=== PATIENT | male | born 1975 | race Caucasian/White ===

== ENCOUNTER 2019-02-15 18:50 | Emergency (ER) | payer OTHER ==
[2019-02-15 18:56] VITALS: BP 127/85
[2019-02-15] MEDS ORDERED: AMOXICILLIN TR/POT CLAVULANATE 500-125 MG TAB PO ONE (19:48)
[2019-02-15] MEDS ORDERED: DIPH/PERTUSS(ACELL)/TETANUS VAC/PF 0.5 ML SYR (>=10YO) IM ONE (19:48)
[2019-02-15] MEDS ORDERED: OXYCODONE-ACETAMINOPHEN 5-325 MG TABLET PO ONE (19:48)
[2019-02-15] MEDS ORDERED: AMOXICILLIN TRIHYD 250 MG CAPSULE PO ONE (19:48)
[2019-02-15] MEDS ORDERED: LIDOCAINE 1% INJ-PF (10 MG/ML) 30 ML SDV INJ ONE (19:48)
--- NOTE | 2019-02-15 19:51 | ER Document Report ---
ED Medical Screen (RME) - General Chief Complaint: Dog Bite Stated Complaint: DOG BITE Time Seen by Provider: 02/15/19 19:37 Mode of Arrival: Ambulatory Information source: Patient Notes: Patient reports dog bite to the right upper lip area. Patient then avulsion of the tissue. Patient reports that animal's immunizations are up-to-date. I have greeted and performed a rapid initial assessment of this patient. A comprehensive ED assessment and evaluation of the patient, analysis of test results and completion of the medical decision making process will be conducted by additional ED providers. TRAVEL OUTSIDE OF THE [place] IN LAST 30 DAYS: No - Related Data Allergies/Adverse Reactions: No Known Allergies Allergy (Verified 03/21/17 09:53) Past Medical History Renal/ Medical History: Denies: Hx Peritoneal Dialysis - Immunizations Hx Diphtheria, Pertussis, Tetanus Vaccination: No History of Influenza Vaccine for 02/2017 - 07/2017 Season: No Physical Exam - Vital signs Vitals: Temp Pulse BP Pulse Ox 97.8 F 59 L 127/85 H 100 02/15/19 18:54 02/15/19 18:54 02/15/19 18:54 02/15/19 18:54 - General Notes: Avulsion injury to right upper lip, small flap of tissue to lip area Course - Re-evaluation Re-evalutation: 02/15/19 19:50 Dr. Berta Norman to bedside, recommends having patient to room and she will perform wound repair - Vital Signs Vital signs: Temp Pulse Resp BP Pulse Ox 97.8 F 59 L 127/85 H 100 02/15/19 18:54 02/15/19 18:54 02/15/19 18:54 02/15/19 18:54
--- NOTE | 2019-02-15 20:01 | ER Document Report ---
ED Animal Bite - General Chief Complaint: Dog Bite Stated Complaint: DOG BITE Time Seen by Provider: 02/15/19 19:37 Primary Care Provider: ANDREW SILVA MD [ACTIVE STAFF] - Follow up tomorrow Mode of Arrival: Ambulatory TRAVEL OUTSIDE OF THE [place] IN LAST 30 DAYS: No - HPI Notes: Patient is a 43-year-old male that presents to the emergency department for chief complaint of dog bite. Patient states that just prior to coming the ER he was leaning forward putting his friend's dog when it lunged forward and bit him in the lip. He reports pain in the lip but denies any injury to his teeth. He believes the dog is vaccinated. He is not sure when his last tetanus vaccine was. Past Medical History: Negative Past Surgical History: Reviewed in chart Social History: Denies drugs alcohol and tobacco Family History: Reviewed and noncontributory for presenting illness Allergies: Reviewed, see documented allergy list. REVIEW OF SYSTEMS: CONSTITUTIONAL : No fever No chills No diaphoresis No recent illness EENT: No vision changes No congestion No sore throat CARDIOVASCULAR: No chest pain No palpitations RESPIRATORY: No shortness of breath No cough No difficulty breathing GASTROINTESTINAL: No abdominal pain No nausea No vomiting No diarrhea GENITOURINARY: No dysuria No hematuria No difficulty urinating MUSCULOSKELETAL: No back pain No leg pain No arm pain SKIN: No rashes Facial laceration LYMPHATIC: No swollen, enlarged glands. NEUROLOGICAL: No lightheadedness No headache No weakness No paresthesias PSYCHIATRIC: No anxiety No depression PHYSICAL EXAMINATION: Vital signs reviewed, nursing noted reviewed. GENERAL: Well-appearing, well-nourished and in no acute distress. HEAD: Atraumatic, normocephalic. EYES: Eyes appear normal, extraocular movements intact, sclera anicteric, conjunctiva are normal. ENT: No dental tenderness to percussion or laxity. Nares patent, oropharynx cl ear without exudates. Moist mucous membranes. NECK: Normal range of motion, supple without lymphadenopathy LUNGS: Breath sounds clear to auscultation bilaterally and equal. No wheezes rales or rhonchi. HEART: Regular rate and rhythm without murmurs ABDOMEN: Soft, nontender, normoactive bowel sounds. No rebound, guarding, or rigidity. No masses appreciated. EXTREMITIES: Nontender, good range of motion, no pitting or edema. NEUROLOGICAL: No focal neurological deficits. Moves all extremities spontaneously Motor and sensory grossly intact on exam. PSYCH: Normal mood, normal affect. SKIN: Warm, Dry, normal turgor. Right upper lip stellate avulsion laceration involving the vermilion border with missing tissue - Related Data Allergies/Adverse Reactions: No Known Allergies Allergy (Verified 03/21/17 09:53) Past Medical History - General Information source: Patient - Social History Smoking Status: Never Smoker Family History: Reviewed & Not Pertinent Patient has suicidal ideation: No Patient has homicidal ideation: No Renal/ Medical History: Denies: Hx Peritoneal Dialysis - Immunizations Hx Diphtheria, Pertussis, Tetanus Vaccination: No Physical Exam - Vital signs Vitals: Temp Pulse BP Pulse Ox 97.8 F 59 L 127/85 H 100 02/15/19 18:54 02/15/19 18:54 02/15/19 18:54 02/15/19 18:54 Course - Re-evaluation Re-evalutation: 02/15/19 19:59 Vitals reviewed. Nursing notes reviewed. Patient given Percocet for pain. His tetanus vaccine was updated. He will be started on Augmentin for his dog bite. He has an avulsion laceration of his right upper lip and most of the tissue is still missing. There was a small corner in the medial aspect that was able to be tacked back into place. Patient will be referred to plastic surgery for follow-up. - Vital Signs Vital signs: Temp Pulse Resp BP Pulse Ox 97.8 F 59 L 127/85 H 100 02/15/19 18:54 02/15/19 18:54 02/15/19 18:54 02/15/19 18:54 Procedures - Laceration/Wound Repair lip Time completed: 20:33 Wound length (cm): 2.0 Wound's Depth, Shape: Irregular, Stellate, Other - Avulsed Laceration pre-procedure: Sterile PPE donned, Sterile drapes applied, Shur-Clens applied Anesthetic type: 1% Lidocaine Volume Anesthetic (mLs): 2 Wound explored: Clean Wound Repaired With: Sutures Suture Size/Type: 5:0, Vicryl Number of Sutures: 2 Layer Closure?: No Post-procedure NV exam normal: Yes Complications: No Notes: 02/15/19 20:34 Most of the tissue is avulsed. Small flap medially was approximated using 2 si mple interrupted sutures. Bleeding was controlled. Patient tolerated well with no immediate complications. Discharge - Discharge Clinical Impression: Lip laceration Qualifiers: Encounter type: initial encounter Qualified Code(s): S01.511A - Laceration without foreign body of lip, initial encounter Dog bite Qualifiers: Encounter type: initial encounter Qualified Code(s): W54.0XXA - Bitten by dog, initial encounter Condition: Stable Disposition: HOME, SELF-CARE Instructions: Laceration Care ([facility]), Prophylactic Antibiotic ([facility]), Tetanus Immunization Given ([facility]) Additional Instructions: Please return to the emergency department if you have any worsening, or concern of your symptoms. Please return to the emergency department if you develop increased pain, redness or swelling in your lip. Please follow-up with your primary care physician in 2-3 days and any other recommended physicians. If prescribed, take all medications as directed. If you have any questions or concerns do not hesitate to return the emergency department for evaluation. Your sutures are dissolvable and do not need to be removed Prescriptions: Amox Tr/Potassium Clavulanate [Augmentin 875-125 Tablet] 1 tab PO BID 10 Days tablet Referrals: ANDREW SILVA MD [ACTIVE STAFF] - Follow up tomorrow
== END 2019-02-15 20:55 | disposition home or self-care (01) ==
LOC: ER 18:50
PROC: 0CQ0XZZ Repair Upper Lip, External Approach (ICD-10-PCS; principal; 2019-02-15)
DX: S01.511A Laceration without foreign body of lip, initial encounter (principal); W54.0XXA Bitten by dog, initial encounter
CPT/HCPCS: 90715; 12011; J3490 ×2; 90471; 99283

== ENCOUNTER 2019-05-08 05:45 | Day surgery (SDC) | payer OTHER ==
[2019-04-30 09:48] LABS: HEMATOCRIT 44.9 % (37.9-51.0); MEAN CORPUSCULAR HEMOGLOBIN 28.4 pg (27.0-33.4); MEAN CORPUSCULAR HGB CONC 33.3 g/dL (32.0-36.0); MEAN CORPUSCULAR VOLUME 85 fl (80-97); PLATELET COUNT 199 10^3/uL (150-450); RED BLOOD COUNT 5.28 10^6/uL (4.35-5.55); RED CELL DISTRIBUTION WIDTH 13.8 % (11.5-14.0); WHITE BLOOD COUNT 5.6 10^3/uL (4.0-10.5)
--- NOTE | 2019-04-30 09:49 | RADIOLOGY REPORT (SQ) ---
EXAM DESCRIPTION: CHEST PA/LATERAL COMPLETED DATE/TIME: 04/30/2019 9:26 am REASON FOR STUDY: PRE OP COMPARISON: 03/21/2017 EXAM PARAMETERS: NUMBER OF VIEWS: two views TECHNIQUE: Digital Frontal and Lateral radiographic views of the chest acquired. RADIATION DOSE: NA LIMITATIONS: none FINDINGS: LUNGS AND PLEURA: No opacities, masses or pneumothorax. No pleural effusion. MEDIASTINUM AND HILAR STRUCTURES: No masses or contour abnormalities. HEART AND VASCULAR STRUCTURES: Heart normal size. No evidence for failure. BONES: No acute findings. HARDWARE: None in the chest. OTHER: No other significant finding. IMPRESSION: NO SIGNIFICANT RADIOGRAPHIC FINDING IN THE CHEST. TECHNICAL DOCUMENTATION: JOB ID: [id number] [employer]- All Rights Reserved Reading location - IP/workstation name: [email or web address]
[2019-04-30 10:17] LABS: ANION GAP 9 (5-19); BLOOD UREA NITROGEN 18 mg/dL (7-20); CALCIUM 9.8 mg/dL (8.4-10.2); CARBON DIOXIDE 28 mmol/L (22-30); CHLORIDE 104 mmol/L (98-107); GLUCOSE 93 mg/dL (75-110); POTASSIUM 4.8 mmol/L (3.6-5.0)
--- NOTE | 2019-04-30 17:00 | EKG REPORT ---
SEVERITY:- NORMAL ECG - SINUS RHYTHM : Confirmed by: Wilbert Rebolledo MD 30-Apr-2019 17:00:02
[~2019-05-08 05:45] MED LIST: ACETAMINOPHEN 325 MG TABLET PO PRN; CEFAZOLIN SODIUM 2 GM in DEXTROSE 5%-WATER 100 ML IV PRN; IBUPROFEN 800 MG in NORMAL SALINE 250 ML IV PRN; LACTATED RINGERS 1000 ML IV PRN; LIDOCAINE 0.5% INJ-PF (5 MG/ML) 50 ML SDV SUBCUT PRN; PREGABALIN 50 MG CAPSULE PO PRN
[2019-05-08] MEDS ORDERED: ACETAMINOPHEN 325 MG TABLET ONE (06:30)
[2019-05-08] MEDS ORDERED: PREGABALIN 50 MG CAPSULE ONE (06:30)
[2019-05-08] MEDS ORDERED: HYDROMORPHONE HCL INJ/PF 2 MG/ML AMPULE ONE (06:49)
[2019-05-08] MEDS ORDERED: FENTANYL CITRATE INJ/PF 250 MCG/5 ML AMPULE ONE (06:49)
[2019-05-08] MEDS ORDERED: PROPOFOL INJ 200 MG/20 ML VIAL IV ONE (06:50)
[2019-05-08] MEDS ORDERED: MIDAZOLAM 2 MG/2 ML INJ ONE (06:50)
[2019-05-08] MEDS ORDERED: BUPIVACAINE HCL 0.25 % INJ/PF (2.5 MG/1 ML) 30 ML VIAL ONE (07:24)
[2019-05-08] MEDS ORDERED: DIPHENHYDRAMINE HCL 50 MG/ML VIAL IV PRN (07:46)
[2019-05-08] MEDS ORDERED: FENTANYL CITRATE INJ/PF 100 MCG/2 ML AMPUL IV PRN ×3 (07:46)
[2019-05-08] MEDS ORDERED: PROMETHAZINE HCL INJ 25 MG/1 ML VIAL IV PRN (07:46)
[2019-05-08] MEDS ORDERED: MEPERIDINE HCL/PF INJ 25 MG/1 ML DISP.SYRIN IV PRN (07:46)
[2019-05-08] MEDS ORDERED: PROMETHAZINE HCL INJ 25 MG/1 ML VIAL ONE (10:18)
[2019-05-08] MEDS ORDERED: FENTANYL CITRATE INJ/PF 100 MCG/2 ML AMPUL ONE (10:36)
[2019-05-08] MEDS ORDERED: OXYCODONE-ACETAMINOPHEN 5-325 MG TABLET ONE (11:27)
[2019-05-08] MEDS ORDERED: METOCLOPRAMIDE HCL INJ/PF 10 MG/2 ML SDV ONE (11:36)
[2019-05-08] MEDS ORDERED: DEXAMETHASONE SOD PHOSPHATE INJ 4 MG/1 ML VIAL ONE (14:27)
[2019-05-08] MEDS ORDERED: SUCCINYLCHOLINE CHLORIDE INJ 200 MG/10 ML VIAL ONE (14:27)
[2019-05-08] MEDS ORDERED: ONDANSETRON HCL INJ/PF 4 MG/2 ML SDV ONE (14:27)
[2019-05-08] MEDS ORDERED: VECURONIUM BROMIDE INJ 10 MG VIAL IV ONE (14:27)
[2019-05-08] MEDS ORDERED: LIDOCAINE 2% INJ-PF (20 MG/ML) 2 ML AMPUL ONE (14:27)
[2019-05-08] MEDS ORDERED: NEOSTIGMINE METHYLSULFATE 10 MG/10 ML VIAL ONE (14:27)
[2019-05-08] MEDS ORDERED: PHENYLEPHRINE HCL INJ/PF 10 MG/1 ML SDV ONE (14:27)
[2019-05-08] MEDS ORDERED: GLYCOPYRROLATE 1 MG/5 ML VIAL ONE (14:27)
[2019-05-08 14:36] VITALS: BP 99/69
--- NOTE | 2019-05-16 11:43 | Operative Report ---
Nonrecallable Operative Report DATE OF SURGERY: 05/08/19 PREOPERATIVE DIAGNOSIS: Symptomatic bilateral inguinal hernias POSTOPERATIVE DIAGNOSIS: Same as above OPERATION: Robot-assisted bilateral inguinal hernia repair with mesh SURGEON: MONIQUE VASQUEZ ANESTHESIA: GA TISSUE REMOVED OR ALTERED: None COMPLICATIONS: None apparent ESTIMATED BLOOD LOSS: Minimal PROCEDURE: Drains/implants: Large right and left 3 DMax inguinal hernia mesh. Procedure in detail: After informed consent was obtained, the patient was haja t to the operating room and laid in the supine position. The area of the abdomen was prepped and draped in a normal sterile fashion. A supraumbilical incision was created with a 15 blade scalpel. Dissection was carried through the subcutaneous tissues using sharp and blunt dissection. The linea alba fascia was incised sharply, the abdomen was entered sharply. The balloon trocar was inserted, and pneumoperitoneum was achieved. 2 right and left 8 mm robotic trochars were then placed under direct laparoscopic visualization. The robot was then brought over the patient and docked appropriately. I then assumed my position at the surgeon's console. Attention was turned to the right groin. A preperitoneal dissection was undertaken using sharp and blunt dissection. Incision was created in the peritoneum 3 cm superior to the indirect inguinal hernia defect. The hernia sac was freed from the cord structures, taking great care not to injure the cord structures. Once the hernia sac was reduced, a large 3D max inguinal hernia mesh was placed into the preperitoneal space. The mesh was situated over the defect. It was sutured medially and superiorly using 2-0 Vicryl suture. Next, attention was turned to the left groin. In similar fashion, a preperitoneal dissection was undertaken. The peritoneum was scored 3 cm superior to the left inguinal hernia defect. A preperitoneal dissection was undertaken using sharp dissection, blunt dissection, and electrocautery. The hernia sac was freed from the cord structures, taking great care not to injure the cord structures. Once the hernia sac was reduced, a large left-sided 3 DMax inguinal hernia mesh was placed into the preperitoneal space. It was sutured medially and superiorly using 2-0 Vicryl suture. The peritoneum was then closed over the right and left groin. This was done using 2-0 V lock suture in simple running fashion. Once this was completed, the repairs were inspected. They appear to be in good order. Next, attention was turned to undocking of the robot. I then scrubbed back into the case. The trochars were then removed. Pneumoperitoneum was relieved. The supraumbilical fascia was closed using 0 Vicryl suture in [id number] fashion. The overlying skin was closed using 4-0 Vicryl Rapide suture in subcuticular fashion. All sponge, instrument, and needle counts were correct x2. Condition: Stable.
--- NOTE | 2019-05-16 11:44 | Discharge Summary ---
Discharge Summary (SDC) - Discharge Final Diagnosis: Bilateral inguinal hernias, symptomatic Date of Surgery: 05/08/19 Discharge Date: 05/08/19 Condition: Stable Forms: ASU Anesthesia D/C Instruction, Discharge POC-Surgical Service Treatment or Instructions: OKAY TO SHOWER ON SATURDAY, NO TUB BATHS, NO SWIMMING TAKE MEDICATION DIRECTED FOLLOW UP DIRECTED DIET TOLERATED NO LIFTING OVER 10 POUNDS FOR 4 WEEKS NO PUSHING, PULLING, OR LIFTING MOTIONS Referrals: MONIQUE VASQUEZ MD [ACTIVE STAFF] - 05/25/19 10:15 am Discharge Diet: As Tolerated Respiratory Treatments at Home: Deep Breathing/Coughing, Incentive Spirometer Discharge Activity: Balance Activity w/Rest, No Driving, No Lifting Over 10 Pounds, No Lifting/Push/Pulling, No tub bath Home Care Assistance: None Needed Report the Following to Your Physician Immediately: Shortness of Breath, Nausea, Vomiting, Increase in Pain, Fever over 101 Degrees, Unusual Bleeding, Redness, Swelling, Warmth, Increased Soreness, Drainage-Yellow, Drainage-De Jesus, Drainage- Green, Drainage-Foul Smelling, Large Clots, Numbness, Tingling Sensation, Wheezing, Seizure, IV Site Infection Signs
== END 2019-05-08 14:05 | disposition home or self-care (01) ==
LOC: OROUT 05:45
PROVIDERS: ATTEND Surgery
DX: K40.20 Bilateral inguinal hernia, without obstruction or gangrene, not specified as recurrent (principal); Z87.891 Personal history of nicotine dependence; Z01.818 Encounter for other preprocedural examination; R51 Headache; R42 Dizziness and giddiness; K64.9 Unspecified hemorrhoids
CPT/HCPCS: 49650; S2900; 36415; 71046; 80048; 830; 85027; 86850; 86900; 86901; 93005; 93010; C1781; J0330; J0690; J1100; J1170; J1741; J2250; J2370; J2405; J2550; J2704; J2710; J2765; J3010; J3490; J7050; J7060

== ENCOUNTER 2020-06-08 11:46 | Emergency (ER) | payer OTHER ==
--- NOTE | 2020-06-08 12:18 | ER Document Report ---
ED Medical Screen (RME) - General Chief Complaint: Chest Pain Stated Complaint: CHEST PAIN Time Seen by Provider: 06/08/20 12:14 Primary Care Provider: ALINE LORA MD [Primary Care Provider] - Follow up as needed Notes: Patient is a 44-year-old male presents emergency department with chief complaint of chest pain. Patient reports this is been intermittent for 2 weeks. Patient reports he is also having intermittent left arm numbness and tingling. Patient denies weakness in his upper or lower extremities. Patient reports that the chest pain is not exacerbated by specific movement. Patient denies cough. Patient denies any known medical problems. TRAVEL OUTSIDE OF THE [place] IN LAST 30 DAYS: No - Related Data Allergies/Adverse Reactions: No Known Allergies Allergy (Verified 05/08/19 06:34) Past Medical History - Social History Frequency of alcohol use: Occasional Drug Abuse: None - Past Medical History Cardiac Medical History: Denies: Hx Coronary Artery Disease, Hx Heart Attack, Hx Hypertension Pulmonary Medical History: Denies: Hx Asthma, Hx Bronchitis, Hx COPD, Hx Pneumonia Neurological Medical History: Denies: Hx Cerebrovascular Accident, Hx Seizures Renal/ Medical History: Denies: Hx Peritoneal Dialysis Musculoskeltal Medical History: Denies Hx Arthritis - Immunizations Hx Diphtheria, Pertussis, Tetanus Vaccination: Yes - 11/17/18 Physical Exam - Vital signs Vitals: Temp Pulse Resp BP Pulse Ox 97.8 F 65 16 107/77 100 06/08/20 11:59 06/08/20 11:59 06/08/20 11:59 06/08/20 11:59 06/08/20 11:59 - Respiratory Respiratory status: No respiratory distress Chest status: Nontender Breath sounds: Normal Chest palpation: Normal - Cardiovascular Rhythm: Regular Heart sounds: Normal auscultation, S1 appreciated, S2 appreciated Course - Re-evaluation Re-evalutation: 06/08/20 12:18 Will obtain basic labs including a troponin and a chest x-ray. EKG was already obtained in triage upon the patient arrival did not show any acute abnormalities. Patient is sinus rhythm. Patient alert and oriented x4. I have greeted and performed a rapid initial assessment of this patient. A comprehensive ED assessment and evaluation of the patient, analysis of test results and completion of the medical decision making process will be conducted by additional ED providers. - Vital Signs Vital signs: Temp Pulse Resp BP Pulse Ox 97.8 F 65 16 107/77 100 06/08/20 11:59 06/08/20 11:59 06/08/20 11:59 06/08/20 11:59 06/08/20 11:59 Doctor's Discharge - Discharge Referrals: ALINE LORA MD [Primary Care Provider] - Follow up as needed
--- NOTE | 2020-06-08 12:29 | EKG REPORT ---
SEVERITY:- NORMAL ECG - SINUS RHYTHM : Confirmed by: Wilbert Rebolledo MD 08-Jun-2020 12:29:00
--- NOTE | 2020-06-08 12:42 | RADIOLOGY REPORT (SQ) ---
EXAM DESCRIPTION: CHEST 2 VIEWS IMAGES COMPLETED DATE/TIME: 06/08/2020 12:33 pm REASON FOR STUDY: left sided chest pain COMPARISON: 04/30/2019 EXAM PARAMETERS: NUMBER OF VIEWS: two views TECHNIQUE: Digital Frontal and Lateral radiographic views of the chest acquired. RADIATION DOSE: NA LIMITATIONS: none FINDINGS: LUNGS AND PLEURA: No opacities, masses or pneumothorax. No pleural effusion. MEDIASTINUM AND HILAR STRUCTURES: No masses or contour abnormalities. HEART AND VASCULAR STRUCTURES: Heart normal size. No evidence for failure. BONES: No acute findings. HARDWARE: None in the chest. OTHER: No other significant finding. IMPRESSION: NO ACUTE RADIOGRAPHIC FINDING IN THE CHEST. TECHNICAL DOCUMENTATION: JOB ID: [id number] 2010 [employer]- All Rights Reserved Reading location - IP/workstation name: [email or web address]
[2020-06-08 12:54] LABS: ABSOLUTE EOSINOPHILS # (AUTO) 0.1 10^3/uL (0.0-0.6); ABSOLUTE LYMPHOCYTES (AUTO) 1.8 10^3/uL (0.5-4.7); ABSOLUTE MONOCYTES (AUTO) 0.5 10^3/uL (0.1-1.4); ABSOLUTE NEUT (AUTO) 3.1 10^3/uL (1.7-8.2); BASOPHILS % (AUTO) 0.5 % (0-2); EOSINOPHILS % (AUTO) 1.4 % (0-6); HEMATOCRIT 44.2 % (37.9-51.0); HEMOGLOBIN 14.6 g/dL (13.5-17.0); LYMPHOCYTES % (AUTO) 33.1 % (13-45); MEAN CORPUSCULAR HEMOGLOBIN 27.7 pg (27.0-33.4); MEAN CORPUSCULAR HGB CONC 33.1 g/dL (32.0-36.0); MEAN CORPUSCULAR VOLUME 84 fl (80-97); MONOCYTES % (AUTO) 9.7 % (3-13); PLATELET COUNT 210 10^3/uL (150-450); RED BLOOD COUNT 5.28 10^6/uL (4.35-5.55); RED CELL DISTRIBUTION WIDTH 13.7 % (11.5-14.0); SEGMENTED NEUTROPHILS % (AUTO) 55.3 % (42-78); TOTAL CELLS COUNTED % (AUTO) 100 %; WHITE BLOOD COUNT 5.6 10^3/uL (4.0-10.5)
[2020-06-08 13:09] LABS: ALBUMIN 4.6 g/dL (3.5-5.0); ALKALINE PHOSPHATASE 54 U/L (38-126); ANION GAP 5 (5-19); ASPARTATE AMINO TRANSFERASE 27 U/L (17-59); BILIRUBIN,DIRECT 0.1 mg/dL (0.0-0.4); BILIRUBIN,TOTAL 0.6 mg/dL (0.2-1.3); BLOOD UREA NITROGEN 15 mg/dL (7-20); CALCIUM 9.7 mg/dL (8.4-10.2); CARBON DIOXIDE 31 mmol/L (22-30); CHLORIDE 103 mmol/L (98-107); GLUCOSE 123 mg/dL (75-110); POTASSIUM 4.7 mmol/L (3.6-5.0); TOTAL PROTEIN 7.5 g/dL (6.3-8.2)
--- NOTE | 2020-06-08 15:06 | ER Document Report ---
ED General - General Chief Complaint: Chest Pain Stated Complaint: CHEST PAIN Time Seen by Provider: 06/08/20 12:14 Primary Care Provider: NETO LACEY MD [ACTIVE STAFF] - Follow up tomorrow ALINE LORA MD [Primary Care Provider] - Follow up in 3-5 days TRAVEL OUTSIDE OF THE [place] IN LAST 30 DAYS: No - HPI Notes: Patient is a 44-year-old male with no significant past medical history who presents for left-sided chest pain and left arm tingling. Patient states symptoms have been present for 2 to 3 weeks. Arm tingling is worse with movement of the arm and the neck. He denies any neck trauma or any other trauma. 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 He states he has some slight worsening of his chest pain with laying down as well as taking a breath. It is not worse with ambulation. It is slightly worse with palpation. Patient tried to go to urgent care today but they sent him here. He is a non-smoker. Patient denies having high blood pressure high cholesterol. He does have a family history of heart disease. - Related Data Allergies/Adverse Reactions: No Known Allergies Allergy (Verified 05/08/19 06:34) Past Medical History - General Information source: Patient - Social History Smoking Status: Never Smoker Frequency of alcohol use: Occasional Drug Abuse: None Family History: Reviewed & Not Pertinent - Past Medical History Cardiac Medical History: Denies: Hx Coronary Artery Disease, Hx Heart Attack, Hx Hypertension Pulmonary Medical History: Denies: Hx Asthma, Hx Bronchitis, Hx COPD, Hx Pneumonia Neurological Medical History: Denies: Hx Cerebrovascular Accident, Hx Seizures Renal/ Medical History: Denies: Hx Peritoneal Dialysis Musculoskeletal Medical History: Denies Hx Arthritis - Immunizations Hx Diphtheria, Pertussis, Tetanus Vaccination: Yes - 11/17/18 Review of Systems - Review of Systems Notes: CONSTITUTIONAL: No fever, fatigue or weight loss. SKIN: No rash. HENT: No congestion, ear pain, or sore throat. EYES: No recent vision problems or eye pain. CARDIOVASCULAR: Positive for left-sided chest pain. No edema. RESPIRATORY: No cough, shortness of breath, congestion, or wheezing. GASTROINTESTINAL: No abdominal pain, nausea, vomiting, bloody stools or diarrhea. GENITOURINARY: No dysuria. MUSCULOSKELETAL: No joint pain or swelling. NEUROLOGIC: No seizures. No headache, focal weakness or sensory changes. Positive for left arm tingling. No Numbness. HEMATOLOGIC: No unusual bruising or bleeding. PSYCHIATRIC: No depression or anxiety. Physical Exam - Vital signs Vitals: Temp Pulse Resp BP Pulse Ox 97.8 F 65 16 107/77 100 06/08/20 11:59 06/08/20 11:59 06/08/20 11:59 06/08/20 11:59 06/08/20 11:59 - General General appearance: Appears well In distress: None Notes: VITAL SIGNS: Within normal limits. GENERAL: No acute distress, non-toxic appearance. HEAD: Normal with no signs of head trauma. EYES: Conjunctiva normal, no discharge. EARS: Hearing grossly intact. NOSE: Normal. NECK: Normal range of motion, no tenderness, supple, no lymphadenopathy, No adenopathy, no JVD. CHEST: Clear breath sounds bilaterally. No wheezes, rales, or rhonchi. CARDIAC: Regular rate and rhythm. S1 and S2, without murmurs, gallops, or rubs. VASCULAR: No Edema. Strong radial pulse. ABDOMEN: Normal and soft with no tenderness. LYMPATHTIC: No lymphadenopathy noted. MUSCULOSKELETAL: Good range of motion of all major joints. Extremities without clubbing, cyanosis or edema. NEUROLOGICAL: Alert and oriented x 3. No focal sensory or strength deficits. Speech normal. Follows commands appropriately. PSYCHIATRIC: Normal Affect, judgement and mood. SKIN: Normal appearance with no rashes or lesions. Course - Re-evaluation Re-evalutation: 06/08/20 15:05 Patient appears well on exam. He is resting comfortably. Possible differential could be musculoskeletal versus referred pain from cervical radiculopathy. I will do a trial of Toradol. We will check a D-dimer to rule out a PE as well as a second troponin. Patient's cardiac work-up was negative. He also had a normal D-dimer. Likely, his chest pain is musculoskeletal as it is worse with palpation. He is not describing any kind of angina symptoms. I did refer him to cardiology for follow-up. Patient is very agreeable to this. His left arm tingling is worse with movement of his neck and his arm. 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 I will trial him on muscle relaxers. He was told to take Tylenol and ibuprofen. Patient was told to follow-up with his PCP as he may need an MRI. I gave him strict return precautions including worsening chest pain, weakness, any other concerning signs. He is very agreeable to this. His heart score is 1, I believe he can follow up outpatient. 06/08/20 20:49 - Vital Signs Vital signs: Temp Pulse Resp BP Pulse Ox 98.6 F 65 21 H 116/89 H 97 06/08/20 17:00 06/08/20 11:59 06/08/20 17:00 06/08/20 17:00 06/08/20 17:00 - Laboratory Results Result Diagrams: 06/08/20 12:35 06/08/20 12:35 Laboratory Results Interpreted: 06/08/20 12:35 Carbon Dioxide 31 H Glucose 123 H Critical Laboratory Results Reviewed: No Critical Results - Radiology Results Critical Radiology Results Reviewed: No Critical Results - EKG Interpretation by Me EKG shows normal: Sinus rhythm Rate: Normal Rhythm: NSR When compared to previous EKG there are: No significant change Additional EKG results interpreted by me: 06/08/20 15:05 NS rhythm at a rate of 63. QTc 414. No acute ST changes. EKG is similar to previous. Discharge - Discharge Clinical Impression: Paresthesia, Cervical radiculopathy Chest pain Qualifiers: Chest pain type: other chest pain Qualified Code(s): R07.89 - Other chest pain Condition: Stable Disposition: HOME, SELF-CARE Instructions: Chest Pain of Unclear Cause ([facility]), Numbness or Paresthesia ([facility]) Additional Instructions: Your work-up today is reassuring. Please follow-up with your family doctor. You may take the muscle relaxers as directed. You may take Tylenol and ibuprofen. Follow-up with your family doctor, he may want to order an MRI of the neck. Please follow-up with cardiology about the chest pain. You can call them tomorrow for an appointment. Return to the ER immediately for any worsening symptoms. Prescriptions: Cyclobenzaprine HCl 5 mg PO TID PRN #12 tablet PRN Reason: Referrals: ALINE LORA MD [Primary Care Provider] - Follow up in 3-5 days NETO LACEY MD [ACTIVE STAFF] - Follow up tomorrow
[2020-06-08] MEDS ORDERED: KETOROLAC TROMETHAMINE INJ/PF 30 MG/1 ML SDV IV ONE (15:19)
[2020-06-08 16:25] VITALS: BP 116/89
== END 2020-06-08 17:09 | disposition home or self-care (01) ==
LOC: ER 11:46
DX: R07.9 Chest pain, unspecified (principal); M54.12 Radiculopathy, cervical region; R20.2 Paresthesia of skin; Z82.49 Family history of ischemic heart disease and other diseases of the circulatory system
CPT/HCPCS: 93005; 99285; 96374; 36415; 85025; 80053; 84484; 85379; 71046; 93010; J1885